=== PATIENT | male | born 1950 | race Native Hawaiian/Other Pacific Islander ===

== ENCOUNTER 2016-07-20 07:25 | Day surgery (SDC) | payer MEDICARE, OTHER ==
[2016-07-10 13:40] VITALS: BMI 27.1
[2016-07-20] MEDS ORDERED: Propofol 10 mg/ml Inj (20 ML) ONE (08:20)
[2016-07-20 08:59] VITALS: RESP 16; O2SAT 100
[2016-07-20] MEDS ORDERED: Sodium Chloride 0.9% 1,000 ML IV SCH (09:00)
[2016-07-20 09:40] VITALS: BP 134/79; PULSE 62; TEMP 97.7
== END 2016-07-20 09:59 | disposition home or self-care (01) ==
LOC: ENDO 07:25
PROVIDERS: ATTEND Internal Medicine
DX: K20.9 Esophagitis, unspecified (principal); K29.00 Acute gastritis without bleeding; K63.5 Polyp of colon; K64.8 Other hemorrhoids; N40.0 Benign prostatic hyperplasia without lower urinary tract symptoms; K59.09 Other constipation
CPT/HCPCS: 43239; 88305; 88342; J2704; J7040 ×2